=== PATIENT | female | born 1995 | race Caucasian/White ===

== ENCOUNTER → 2018-11-14 | Outpatient (CLI) | payer OTHER ==
[2018-11-14 23:30] LABS: CANDIDA GROUP DNA POSITIVE (NEGATIVE); CANDIDA KRUSEI DNA NEGATIVE (NEGATIVE); TRICHOMONAS VAGINALIS DNA NEGATIVE (NEGATIVE)
== END ==
LOC: LAB.R 08:00
PROVIDERS: ATTEND Obstetrics & Gynecology
DX: L29.8 Other pruritus (principal)
CPT/HCPCS: 87661; 87801

== ENCOUNTER 2018-12-02 08:00 | Outpatient (CLI) | payer OTHER | END 2018-12-02 23:59 | LOC: LAB.R 08:00 | PROVIDERS: ATTEND Family Medicine | DX: L08.9 Local infection of the skin and subcutaneous tissue, unspecified (principal) ==

== ENCOUNTER 2018-12-26 08:00 | Outpatient (CLI) | payer OTHER ==
[2018-12-26 18:26] LABS: BASOPHILS % (AUTO) 0.4 %; EOSINOPHILS # (AUTO) 0.1 10^3/uL (0.0-0.7); EOSINOPHILS % (AUTO) 0.8 %; HGB - HEMOGLOBIN 13.8 g/dL (12.0-16.0); LYMPHOCYTES # (AUTO) 2.5 10^3/uL (1.5-3.5); LYMPHOCYTES % (AUTO) 24.2 %; MEAN CORPUSCULAR HEMOGLOBIN 27.4 pg (27.0-31.0); MEAN CORPUSCULAR HGB CONC 30.8 g/dL (32.0-36.0); MEAN CORPUSCULAR VOLUME 88.9 fL (81.0-99.0); MONOCYTES # (AUTO) 0.6 10^3/uL (0.0-1.0); MONOCYTES % (AUTO) 5.8 %; NEUTROPHILS # (AUTO) 7.1 10^3/uL (1.5-6.6); NEUTROPHILS % (AUTO) 68.5 %; PLT - PLATELET COUNT 266 10^3/uL (130-450); RED BLOOD COUNT 5.04 10^6/uL (4.20-5.40); RED CELL DISTRIBUTION WIDTH 13.5 % (12.0-15.0); WHITE BLOOD COUNT 10.3 x10^3/uL (4.8-10.8)
[2018-12-26 18:42] LABS: HEMOGLOBIN A1C 1.55 g/dL; HEMOGLOBIN A1C % 11.6 % (4.6-6.2)
[2018-12-26 18:52] LABS: ALBUMIN 4.2 g/dL (3.2-5.5); ALBUMIN/GLOBULIN RATIO 1.2 (1.0-2.2); ALKALINE PHOSPHATASE 87 IU/L (42-121); ALT ALANINE AMINOTRANSFERASE 50 IU/L (10-60); AST ASPARTATE AMINOTRANSFERASE 36 IU/L (10-42); BILIRUBIN,TOTAL 0.8 mg/dL (0.2-1.0); BUN - BLOOD UREA NITROGEN 10 mg/dL (6-20); CALCIUM 8.6 mg/dL (8.5-10.3); CARBON DIOXIDE - CO2 24 mmol/L (21-32); CHLORIDE 100 mmol/L (101-111); CHOL/HDL RATIO 4.4 (<4.4); CHOLESTEROL 193 mg/dL; CREATININE 0.7 mg/dL (0.4-1.0); GFR - MDRD 102 (>89); GLUCOSE 246 mg/dL (70-100); HDL CHOLESTEROL 44 mg/dL; LDL CHOLESTEROL,CALCULATED 107 mg/dL; LDL/HDL RATIO 2.4 (<4.4); SODIUM 136 mmol/L (135-145); THYROID STIMULATING HORMONE 2.8 uIU/mL (0.34-5.60); TOTAL PROTEIN 7.7 g/dL (6.7-8.2); VLDL CHOLESTEROL 42 mg/dL
[2018-12-26 18:54] LABS: FREE T4 (FREE THYROXINE) 0.82 ng/dL (0.58-1.64)
== END 2018-12-26 23:59 | disposition home or self-care (01) ==
LOC: LAB.N 08:00
PROVIDERS: ATTEND Obstetrics & Gynecology
DX: Z00.00 Encounter for general adult medical examination without abnormal findings (principal); L29.8 Other pruritus; N89.8 Other specified noninflammatory disorders of vagina; Z12.4 Encounter for screening for malignant neoplasm of cervix
CPT/HCPCS: 36415; 80053; 80061; 83036; 83721; 84439; 84443; 85025

== ENCOUNTER 2021-07-07 08:00 | Outpatient (CLI) | payer BC, OTHER ==
[2021-07-07 23:44] LABS: BACTERIAL VAGINOSIS DNA NEGATIVE (NEGATIVE); CANDIDA GLABRATA DNA NEGATIVE (NEGATIVE); CANDIDA GROUP DNA POSITIVE (NEGATIVE); CANDIDA KRUSEI DNA NEGATIVE (NEGATIVE); TRICHOMONAS VAGINALIS DNA NEGATIVE (NEGATIVE)
== END 2021-07-07 23:59 | disposition home or self-care (01) ==
LOC: LAB.N 08:00
PROVIDERS: ATTEND Physician Assistant
DX: L29.8 Other pruritus (principal)
CPT/HCPCS: 87661; 87801